=== PATIENT | male | born 1940 | race Caucasian/White ===

== ENCOUNTER 2017-04-25 08:35 | Outpatient (CLI) | payer OTHER ==
--- NOTE | 2017-04-25 09:55 | RAD ---
LUMBAR SPINE SERIES FOUR VIEWS: History: Back pain and low hip pain. FINDINGS: Flexion and extension views were performed for this study. The vertebral bodies are normal in height with degenerative osteophytes with minimal disc narrowing at L1-2 and L2-3. There is a retrolisthesis of L2 on L3, not definitely changed between flexion and extension. There are degenerative facet martinez ges present. Pedicles are intact. IMPRESSION: Moderate arthritic changes of the spine. POS: MATT
--- NOTE | 2017-04-25 11:10 | MRI ---
LUMBAR SPINE MRI WITH AND WITHOUT CONTRAST: Date: 04/25/17 HISTORY: Lumbar radiculopathy. Low back pain with left hip pain. Previous laminectomy. COMPARISON: None. TECHNIQUE: MRI lumbar spine is performed with and without intravenous Gadolinium administration. Multisequential , multiplanar imaging is performed. FINDINGS: There is appropriate T1 marrow signal intensity of the lumbar vertebra. Lumbar spine vertebral body h eight is maintained. No fracture. 3.2 mm of retrolisthesis of L2 upon L3, 3.4 mm anterolisthesis of L 4 upon L5. There is no abnormal enhancement of the vertebral bodies. No abnormal enhancement of the thecal sac, including the cauda equina and conus medullaris. Symmetric signal intensity of the psoas muscles. Appropriate signal intensity of the visualized solid organs. Conus medullaris terminates at the inferior aspect of T12. T12-L1: Adequate disc hydration. No significant central canal stenosis or foraminal narrowing. L1-L2: Adequate disc hydration. No significant central canal stenosis or foraminal narrowing. L2-L3: Adequate disc hydration. No significant central canal stenosis or foraminal narrowing. L3-L4: Adequate disc hydration. No significant central canal stenosis or neural foraminal narrowing. L4-L5: Adequate disc hydration. No significant posterior disc abnormality. There is ligamentum flavum thicke trevor and facet hypertrophy. Laminectomy defect is identified. Minimal enhancing scar tissue at the de fect site. There is a small amount of fluid in both interarticular fact joints. Overall, there is mil d central canal stenosis and mild bilateral foraminal narrowing. There is a punctate T2 hyperintensit y involving the left posterior elements. There is minimal associated enhancement. A punctate residual synovial cyst may be present. There is minimal associated mass effect upon the posterior left thecal sac. L5-S1: Adequate disc hydration. No significant loss of disc space height. No significant posterior disc abno rmality. Minimal central disc bulge is present. Posterior decompressive laminectomy defect is identif ied. No significant central canal stenosis. Right neural foramen is patent. Mild left foraminal narro wing. IMPRESSION: 1. Postsurgical and degenerative changes of the lumbar spine as above. No high grade central canal s tenosis or high grade foraminal narrowing. 2. Mild central canal stenosis at L4-L5, predominantly due to posterior element hypertrophy. There i s a subtle dot of T2 hyperintensity medial to the left facet at L4-L5 with a punctate focus of enhanc ement. A minimal residual synovial cyst may be present. Minimal mass effect upon the posterior left t hecal sac. POS: GOLDY
== END 2017-04-25 08:36 | disposition home or self-care (01) ==
LOC: TBSIIMAG 08:35
PROVIDERS: ATTEND Surgery
DX: M47.26 Other spondylosis with radiculopathy, lumbar region (principal); M48.061 Spinal stenosis, lumbar region without neurogenic claudication; Z98.1 Arthrodesis status
CPT/HCPCS: 72110; 72158